=== PATIENT | male | born 1970 | race Caucasian/White ===

== ENCOUNTER → 2019-11-05 07:44 | Outpatient (CLI) | payer OTHER | END | disposition home or self-care (01) | LOC: D.CT 07:44 | PROVIDERS: ATTEND Family Medicine | DX: M54.16 Radiculopathy, lumbar region (principal); E78.2 Mixed hyperlipidemia; K21.9 Gastro-esophageal reflux disease without esophagitis; Z95.0 Presence of cardiac pacemaker ==

== ENCOUNTER → 2019-12-06 09:23 | Outpatient (CLI) | payer OTHER ==
--- NOTE | 2019-12-09 08:28 | EC ---
PATIENT:LALY BRYAN JR DATE OF SERVICE: 12/06/19 SEX: M MEDICAL RECORD: [id number] DATE OF : 68 LOCATION:[facility] AGE OF PATIENT: 49 ADMISSION DATE: 12/06/19 REFERRING PHYSICIAN: INTERPRETING PHYSICIAN: MONISHA DIAZ MD ECHOCARDIOGRAM REPORT ECHO CHARGES 4 ECHO COMPLETE Date: 12/06/19 CLINICAL DIAGNOSIS: PALPITATIONS/CARDIOMYOPATHY H/O HTN/PACEMAKER PLACEMENT ECHOCARDIOGRAPHIC MEASUREMENTS (adult normal given) AC root (d.<3.7cm) 3.2 cm LV Septum d (<1.2 cm> 0.9 cm Valve Excursion 2.1 cm LV Septum (systole) 1.3 cm Left Atria (s.<4.0cm> 3.1 cm LVPW d(<1.2cm) 1.0 cm RV (d.<2.3cm) 2.7 cm LVPW (sytole) 1.6 cm LV diastole(<5.6CM) 5.3 cm MV E-F(>70mm/sec) cm LV systole 3.0 cm LVOT Diameter 1.8 cm MV exc.(>10mm) cm Est.ejection fraction (50-75%) % DOPPLER: LVIT cm/sec A 39.0 cm/sec E 82.0 cm/sec LA cm/sec RVSP 31.1 mmHg LVOT 106 cm/sec AOP1/2T m/s Asc. 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 [place] TAPE# PACS Pericardial Effusion N DATE OF SERVICE: 12/06/2019 Adequate 2-D echo, Color-Flow and Spectral Doppler, and M-mode No LVH. LV internal dimensions normal. Wall motion is normal. EF is greater than or equal to 55%. Aortic valve is tricuspid. No evidence of stenosis with Doppler interrogation. Left atrium is normal with 3.1 cm. Mitral valve shows no prolapse. Trace MR. Right sided chambers are grossly normal. Mild TR. Incidental note was made of pacemaker lead in RV apex. ECHOCARDIOGRAM REPORT [id number] LALY BRYAN JR TRANSINT:[id number] Voice Confirmation ID: [id number] DOCUMENT ID: [id number] MONISHA DIAZ MD at 0828 CC: [id number] DICTATION DATE: 12/06/19 1327 R[employer]F [employer] HELPER: 12/06/19 2300 DEP CLI 12/06/19 [place] [id number] [place] [id number]
== END | disposition home or self-care (01) ==
LOC: D.HCCECHO 09:23
PROVIDERS: ATTEND Internal Medicine Interventional Cardiology
DX: I42.9 Cardiomyopathy, unspecified (principal)

== ENCOUNTER → 2020-01-31 09:18 | Outpatient (CLI) | payer OTHER | END | disposition home or self-care (01) | LOC: D.RAD 01-17 10:45 → D.RT 01-17 11:00 → D.RAD 01-28 08:30 | PROVIDERS: ATTEND Internal Medicine Pulmonary Disease | DX: J44.9 Chronic obstructive pulmonary disease, unspecified (principal) ==

== ENCOUNTER 2021-03-10 09:18 | Emergency (ER) | payer OTHER ==
[~2021-03-10] VITALS: Ht 172.7 cm; Wt 65.5 kg
[2021-03-10 09:22] VITALS: BP 164/95; Ht 172.7 cm; Wt 65.5 kg
[2021-03-10] MEDS ORDERED: ASPIRIN81 MG PO (09:24)
[2021-03-10] MEDS ORDERED: [UNRECOGNIZED DRUG - REMARK] (09:24)
[2021-03-10] MEDS ORDERED: HTN MED? (09:24)
[2021-03-10 09:45] LABS: BASOPHILS 0.1 % (0-2); EOSINOPHILS 5.1 % (0-7); HEMATOCRIT 40.8 % (42.0-54.0); HEMOGLOBIN 13.9 g/dL (13.5-17.5); IMMATURE GRANULOCYTES 0.2 % (0-5); LYMPHOCYTE ABS# 2.96 10x3/uL (1.32-3.57); MCH 33.4 pg (26.0-34.0); MCHC 34.1 g/dL (31.0-37.0); MCV 98.1 fL (80.0-100.0); MEAN PLATELET VOLUME 9.8 fL (7.4-10.4); MONOCYTES 7.2 % (2-11); NEUTROPHIL ABS# 4.23 10x3/uL (1.78-5.38); NEUTROPHILS 51.4 % (40-80); PLATELET COUNT 278 10x3/uL (130-400); RBC 4.16 10x6/uL (4.20-6.10); WBC 8.2 10x3/uL (4.8-10.8)
[2021-03-10 09:53] LABS: CALC OSMOLALITY 276 mosm/kg (275-300); CALCIUM 9.1 mg/dL (8.5-10.1); CARBON DIOXIDE 28.1 mmol/L (21.0-32.0); CHLORIDE - SERUM 102 mmol/L (98-107); CREATININE - SERUM 0.9 mg/dL (0.6-1.3); GLUCOSE 104 mg/dL (74-106); POTASSIUM - SERUM 4.1 mmol/L (3.5-5.1); SODIUM 138 mmol/L (136-145); UREA NITROGEN 15 mg/dL (7-18); eGFR NON AFRICAN AMERICAN > 90 mL/min (90-120)
[2021-03-10 09:54] LABS: APTT 29.3 SECONDS (22.8-39.4); INR 0.97 (0.85-1.17); PROTIME 11.9 SECONDS (11.6-15.0)
[2021-03-10 10:09] LABS: ALBUMIN 3.9 g/dL (3.4-5.0); ALKALINE PHOSPHATASE 73 U/L (30-120); ALT (SGPT) 26 U/L (10-68); BILIRUBIN - TOTAL 0.19 mg/dL (0.2-1.3); CKMB 0.8 U/L (0.0-3.6); CREATINE KINASE 73 UL (21-232); PROTEIN - SERUM 7.8 g/dL (6.4-8.2); TROPONIN-I < 0.017 ng/mL (0.000-0.060)
[2021-03-10] MEDS ORDERED: LISINOPRIL10 MG PO (11:43)
== END 2021-03-10 12:56 | disposition home or self-care (01) ==
LOC: D.ER 09:18
PROVIDERS: Family Medicine
DX: I10 Essential (primary) hypertension (principal); R53.83 Other fatigue; R53.81 Other malaise; Z76.0 Encounter for issue of repeat prescription